=== PATIENT | female | born 1965 | race Two or more races ===

== ENCOUNTER 2022-07-08 11:02 | Emergency (ER) | payer MEDICAID ==
[~2022-07-08] VITALS: Ht 154.9 cm; Wt 55.1 kg
[2022-07-08 11:46] VITALS: BP 116/76
[2022-07-08] MEDS ORDERED: ACET1CAP14 PO (12:28)
[2022-07-08] MEDS ORDERED: AMOX-277 PO (12:28)
[2022-07-08] MEDS ORDERED: ACETAMINOPHEN 500 MG TAB PO ONE (12:30)
== END 2022-07-08 12:34 | disposition home or self-care (01) ==
LOC: ER 11:02
DX: H66.91 Otitis media, unspecified, right ear (principal)